=== PATIENT | male | born 1945 | race Caucasian/White ===

== ENCOUNTER 2018-01-25 12:15 | Inpatient (IN) | payer MEDICARE ==
[~2018-01-25] VITALS: Ht 175.3 cm; Wt 56.8 kg
[~2018-01-25 12:15] MED LIST: ACET500 PO; DOXY100 PO; DULO60 PO; ERGO50000 PO; FAMO20 PO; Felodipine ER5 MG PO; HYDMOR2 PO; LACT10SY PO; METH10 PO; METO5A PO; ONDA4ODT PO; PANT40 PO; ZENPEP DR 5,001 EACH PO
[2018-01-25 13:23] LABS: BASOPHILS ABSOLUTE AUTO 0.06 K/mm3 (0.00-0.23); BASOPHILS PERCENT AUTO 0 % (0-2); EOSINOPHILS ABSOLUTE AUTO 0.23 K/mm3 (0.00-0.68); EOSINOPHILS PERCENT AUTO 1 % (0-6); Hematocrit 44.3 % (37.0-53.0); Hemoglobin 14.4 g/dL (13.5-17.5); IMMATURE GRAN PERCENT AUTO 1 % (0-1); LYMPHOCYTES ABSOLUTE AUTO 1.98 K/mm3 (0.84-5.20); LYMPHOCYTES PERCENT AUTO 12 % (21-46); MONOCYTES ABSOLUTE AUTO 0.99 K/mm3 (0.16-1.47); MONOCYTES PERCENT AUTO 6 % (4-13); Mean Corpuscular HGB 30.1 pg (26.0-34.0); Mean Corpuscular HGB Conc 32.5 g/dL (31.5-36.5); Mean Corpuscular Volume 93 fL (80-100); Mean Platelet Volume 10.9 fL (9.1-12.4); NEUTROPHILS ABSOLUTE AUTO 13.21 K/mm3 (1.96-9.15); NEUTROPHILS PERCENT AUTO 80 % (41-73); Platelet Count 181 K/mm3 (150-400); RDW Coefficient Variation 13.8 % (11.7-14.2); RDW Standard Deviation 47.2 fL (35.1-46.3); Red Blood Cell Count 4.78 M/mm3 (4.30-5.90); White Blood Cell Count 16.57 K/mm3 (4.00-11.30)
[2018-01-25 13:30] LABS: Anion Gap 8 mmol/L (6-16); Blood Urea Nitrogen 15 mg/dL (8-24); Bun/Creatinine Ratio 14.3 (12.0-20.0); CO2, Blood 25 mmol/L (21-32); Calcium, Blood 8.3 mg/dL (8.5-10.1); Chloride, Blood 109 mmol/L (98-108); Creatinine, Blood 1.05 mg/dL (0.60-1.20); Glomerular Filtration Rate >60 (60-); Glucose, Blood 133 mg/dL (70-99); Potassium, Blood 4.6 mmol/L (3.5-5.5); Sodium, Blood 142 mmol/L (136-145)
[2018-01-25 13:36] LABS: International Normalized Ratio 1.01; Prothrombin Time Results 10.5 Sec (9.7-11.5)
[2018-01-26 04:36] LABS: Hematocrit 34.9 % (37.0-53.0); Hemoglobin 11.8 g/dL (13.5-17.5); Mean Corpuscular HGB 30.5 pg (26.0-34.0); Mean Corpuscular HGB Conc 33.8 g/dL (31.5-36.5); Mean Platelet Volume 10.2 fL (9.1-12.4); Platelet Count 149 K/mm3 (150-400); RDW Coefficient Variation 13.3 % (11.7-14.2); RDW Standard Deviation 43.8 fL (35.1-46.3); Red Blood Cell Count 3.87 M/mm3 (4.30-5.90); White Blood Cell Count 18.08 K/mm3 (4.00-11.30)
[2018-01-26 04:41] LABS: Mean Corpuscular Volume 90 fL (80-100)
[2018-01-26 04:56] LABS: Anion Gap 10 mmol/L (6-16); Blood Urea Nitrogen 14 mg/dL (8-24); Bun/Creatinine Ratio 16.5 (12.0-20.0); CO2, Blood 23 mmol/L (21-32); Calcium, Blood 8.4 mg/dL (8.5-10.1); Chloride, Blood 105 mmol/L (98-108); Creatinine, Blood 0.85 mg/dL (0.60-1.20); Glomerular Filtration Rate >60 (60-); Glucose, Blood 161 mg/dL (70-99); Potassium, Blood 4.1 mmol/L (3.5-5.5); Sodium, Blood 138 mmol/L (136-145)
[2018-01-26 14:36] LABS: Source, Urine Urostomy Bag
[2018-01-26 14:39] LABS: Bilirubin, Urine Neg (Neg); Blood, Urine Neg (Neg); Glucose Qualitative, Urine Neg (Neg); Ketones, Urine Neg (Neg); Leukocyte Esterase, Urine 3+ (Neg); Nitrite, Urine Neg (Neg); Protein, Urine Neg (Neg); Specific Gravity, Urine 1.005 (1.003-1.022); Urobilinogen, Urine NORM (Normal)
[2018-01-26 14:44] LABS: Appearance, Urine Clear (Clear); Color, Urine Pale Yellow (P-Yellow)
[2018-01-26 14:46] LABS: Bacteria Few /hpf; Red Blood Cells, Urine 0-2 /hpf (0-2); Squamous Epithelial Cells Not Seen /hpf (Few); White Blood Cells, Urine 25-50 /hpf (0-5)
[2018-01-27 13:04] LABS: BASOPHILS ABSOLUTE AUTO 0.02 K/mm3 (0.00-0.23); BASOPHILS PERCENT AUTO 0 % (0-2); EOSINOPHILS ABSOLUTE AUTO 0.02 K/mm3 (0.00-0.68); EOSINOPHILS PERCENT AUTO 0 % (0-6); Hematocrit 27.5 % (37.0-53.0); Hemoglobin 9.3 g/dL (13.5-17.5); IMMATURE GRAN ABSOLUTE AUTO 0.03 K/mm3 (0.00-0.10); IMMATURE GRAN PERCENT AUTO 0 % (0-1); LYMPHOCYTES ABSOLUTE AUTO 0.87 K/mm3 (0.84-5.20); LYMPHOCYTES PERCENT AUTO 8 % (21-46); MONOCYTES ABSOLUTE AUTO 0.69 K/mm3 (0.16-1.47); MONOCYTES PERCENT AUTO 6 % (4-13); Mean Corpuscular HGB 30.7 pg (26.0-34.0); Mean Corpuscular HGB Conc 33.8 g/dL (31.5-36.5); Mean Corpuscular Volume 91 fL (80-100); Mean Platelet Volume 10.5 fL (9.1-12.4); NEUTROPHILS PERCENT AUTO 85 % (41-73); Platelet Count 124 K/mm3 (150-400); RDW Coefficient Variation 13.6 % (11.7-14.2); RDW Standard Deviation 45.3 fL (35.1-46.3); Red Blood Cell Count 3.03 M/mm3 (4.30-5.90); White Blood Cell Count 11.13 K/mm3 (4.00-11.30)
== END 2018-01-29 11:10 | DRG 481 ==
LOC: ER 12:15 → SURS 14:45 → ENPENDDIS 01-29 09:57 → SURS 01-29 11:10
PROVIDERS: Emergency Medicine; Internal Medicine; Orthopaedic Surgery
PROC: 3E0234Z Introduction of Serum, Toxoid and Vaccine into Muscle, Percutaneous Approach (ICD-10-PCS; 2018-01-25)
PROC: 0QS734Z Reposition Left Upper Femur with Internal Fixation Device, Percutaneous Approach (ICD-10-PCS; principal; 2018-01-26 08:00)
DX: S72.142A Displaced intertrochanteric fracture of left femur, initial encounter for closed fracture (principal); N39.0 Urinary tract infection, site not specified; F11.20 Opioid dependence, uncomplicated; N99.521 Infection of incontinent external stoma of urinary tract; Z23 Encounter for immunization; Z93.2 Ileostomy status; W19.XXXA Unspecified fall, initial encounter; Y93.K1 Activity, walking an animal; G89.29 Other chronic pain; K62.89 Other specified diseases of anus and rectum
CPT/HCPCS: 36415; 71046; 73502; 80048; 81001; 85025; 85027; 85610; 86850; 86900; 86901; 87077; 87086; 87186; 93005; 93010; 96361; 96374; 96376; 97110; 97116; 97162; 97165; 97530; 97535; 99285; C1713; G8978; G8979; G8987; G8988; J0360; J1170; J2250; J2370; J3010; J7030

== ENCOUNTER 2019-06-18 00:49 | Emergency (ER) | payer MEDICARE ==
[~2019-06-18] VITALS: Ht 172.7 cm; Wt 62.1 kg
[2019-06-18 01:25] LABS: BASOPHILS ABSOLUTE AUTO 0.02 K/mm3 (0.00-0.23); BASOPHILS PERCENT AUTO 0 % (0-2); EOSINOPHILS ABSOLUTE AUTO 0.03 K/mm3 (0.00-0.68); EOSINOPHILS PERCENT AUTO 0 % (0-6); Hematocrit 44.8 % (37.0-53.0); Hemoglobin 15.2 g/dL (13.5-17.5); IMMATURE GRAN ABSOLUTE AUTO 0.03 K/mm3 (0.00-0.10); IMMATURE GRAN PERCENT AUTO 0 % (0-1); LYMPHOCYTES ABSOLUTE AUTO 0.57 K/mm3 (0.84-5.20); LYMPHOCYTES PERCENT AUTO 8 % (21-46); MONOCYTES PERCENT AUTO 4 % (4-13); Mean Corpuscular HGB 31.2 pg (26.0-34.0); Mean Corpuscular HGB Conc 33.9 g/dL (31.5-36.5); Mean Corpuscular Volume 92 fL (80-100); Mean Platelet Volume 10.1 fL (9.1-12.4); NEUTROPHILS ABSOLUTE AUTO 6.44 K/mm3 (1.96-9.15); NEUTROPHILS PERCENT AUTO 87 % (41-73); Platelet Count 111 K/mm3 (150-400); RDW Coefficient Variation 13.9 % (11.7-14.2); RDW Standard Deviation 47.5 fL (35.1-46.3); Red Blood Cell Count 4.87 M/mm3 (4.30-5.90); White Blood Cell Count 7.39 K/mm3 (4.00-11.30)
[2019-06-18 01:45] LABS: Alanine Aminotransfer (ALT/SGP 13 U/L (12-78); Albumin, Blood 3.8 g/dL (3.4-5.0); Albumin/Globulin Ratio 1.4 (0.8-1.8); Alk Phos 104 U/L (50-136); Anion Gap 5 mmol/L (6-16); Aspartate Aminotrans (AST/SGOT 11 U/L (12-37); Bilirubin, Total 0.7 mg/dL (0.1-1.0); Blood Urea Nitrogen 16 mg/dL (8-24); Bun/Creatinine Ratio 16.6 (12.0-20.0); CO2, Blood 27 mmol/L (21-32); Calcium, Blood 8.7 mg/dL (8.5-10.1); Chloride, Blood 110 mmol/L (98-108); Creatinine, Blood 0.96 mg/dL (0.60-1.20); Globulin, Blood 2.8 g/dL (2.2-4.0); Glomerular Filtration Rate >60 (60-); Glucose, Blood 123 mg/dL (70-99); Potassium, Blood 3.9 mmol/L (3.5-5.5); Sodium, Blood 142 mmol/L (136-145); Total Protein, Blood 6.6 g/dL (6.4-8.2)
[2019-06-18] MEDS ORDERED: BUPRENORPHINE1 EAC1 TD (01:45)
[2019-06-18] MEDS ORDERED: Calcitonin-Sal3.7 ML (01:47)
[2019-06-18] MEDS ORDERED: BELBUCA75 MCG BC (01:47)
[2019-06-18] MEDS ORDERED: CALCIUM 600 +1 EA11 (01:48)
[2019-06-18] MEDS ORDERED: NATURE'S TEARS15 M1 OP (01:48)
[2019-06-18] MEDS ORDERED: DILT120ERA PO (01:49)
[2019-06-18] MEDS ORDERED: DOCU100 PO (01:50)
== END 2019-06-18 05:00 | disposition home or self-care (01) ==
LOC: ER 00:49
PROVIDERS: Emergency Medicine
DX: K62.89 Other specified diseases of anus and rectum (principal); F17.210 Nicotine dependence, cigarettes, uncomplicated
CPT/HCPCS: 72193; 80053; 85025; 96374-59; 96375; 99284-25; A9270; J1170; J2405; Q9967

== ENCOUNTER 2019-08-15 06:04 | Emergency (ER) | payer MEDICARE ==
[~2019-08-15] VITALS: Ht 172.7 cm; Wt 54.4 kg
[~2019-08-15 06:04] MED LIST changes: +BELBUCA75 MCG BC; +BUPRENORPHINE1 EAC1 TD; +CALCIUM 600 +1 EA11; +Calcitonin-Sal3.7 ML; +DILT120ERA PO; +DOCU100 PO; +NATURE'S TEARS15 M1 OP
[2019-08-15] MEDS ORDERED: OXYC5 PO (06:34)
[2019-08-15] MEDS ORDERED: MIRALAX17 GM PO (06:35)
[2019-08-15] MEDS ORDERED: Acidophilus1 EAC1 PO (06:36)
[2019-08-15] MEDS ORDERED: Aspir 8181 MG PO (06:40)
[2019-08-15] MEDS ORDERED: THERA-D2000 UNIT PO (06:41)
[2019-08-15] MEDS ORDERED: TRAZ50 PO (06:45)
[2019-08-15 06:48] LABS: BASOPHILS ABSOLUTE AUTO 0.05 K/mm3 (0.00-0.23); BASOPHILS PERCENT AUTO 1 % (0-2); EOSINOPHILS ABSOLUTE AUTO 0.11 K/mm3 (0.00-0.68); EOSINOPHILS PERCENT AUTO 1 % (0-6); Hematocrit 48.2 % (37.0-53.0); Hemoglobin 16.6 g/dL (13.5-17.5); IMMATURE GRAN ABSOLUTE AUTO 0.03 K/mm3 (0.00-0.10); IMMATURE GRAN PERCENT AUTO 0 % (0-1); LYMPHOCYTES ABSOLUTE AUTO 0.84 K/mm3 (0.84-5.20); LYMPHOCYTES PERCENT AUTO 9 % (21-46); MONOCYTES ABSOLUTE AUTO 0.46 K/mm3 (0.16-1.47); MONOCYTES PERCENT AUTO 5 % (4-13); Mean Corpuscular HGB 31.8 pg (26.0-34.0); Mean Corpuscular HGB Conc 34.4 g/dL (31.5-36.5); Mean Corpuscular Volume 92 fL (80-100); Mean Platelet Volume 10.7 fL (9.1-12.4); NEUTROPHILS ABSOLUTE AUTO 7.76 K/mm3 (1.96-9.15); NEUTROPHILS PERCENT AUTO 84 % (41-73); Platelet Count 122 K/mm3 (150-400); RDW Coefficient Variation 13.2 % (11.7-14.2); RDW Standard Deviation 44.6 fL (35.1-46.3); Red Blood Cell Count 5.22 M/mm3 (4.30-5.90); White Blood Cell Count 9.25 K/mm3 (4.00-11.30)
[2019-08-15 06:57] LABS: Source, Urine Urostomy Bag
[2019-08-15 07:03] LABS: Appearance, Urine Turbid (Clear); Bilirubin, Urine Neg (Neg); Blood, Urine Neg (Neg); Color, Urine Amber (P-Yellow); Glucose Qualitative, Urine Neg (Neg); Ketones, Urine 4+ (Neg); Leukocyte Esterase, Urine 3+ (Neg); Nitrite, Urine Pos (Neg); Protein, Urine 3+ (Neg); Specific Gravity, Urine 1.015 (1.003-1.022); Urobilinogen, Urine NORM (Normal)
[2019-08-15 07:04] LABS: Alanine Aminotransfer (ALT/SGP 15 U/L (12-78); Albumin, Blood 3.7 g/dL (3.4-5.0); Albumin/Globulin Ratio 1.2 (0.8-1.8); Alk Phos 85 U/L (50-136); Anion Gap 8 mmol/L (6-16); Aspartate Aminotrans (AST/SGOT 11 U/L (12-37); Bilirubin, Total 0.7 mg/dL (0.1-1.0); Blood Urea Nitrogen 35 mg/dL (8-24); Bun/Creatinine Ratio 36.6 (12.0-20.0); CO2, Blood 28 mmol/L (21-32); Calcium, Blood 8.7 mg/dL (8.5-10.1); Chloride, Blood 106 mmol/L (98-108); Creatinine, Blood 0.96 mg/dL (0.60-1.20); Globulin, Blood 3.2 g/dL (2.2-4.0); Glomerular Filtration Rate >60 (60-); Glucose, Blood 153 mg/dL (70-99); Potassium, Blood 3.7 mmol/L (3.5-5.5); Sodium, Blood 142 mmol/L (136-145); Total Protein, Blood 6.9 g/dL (6.4-8.2)
[2019-08-15 07:24] LABS: Bacteria Mod /hpf; Red Blood Cells, Urine 0-2 /hpf (0-2); Squamous Epithelial Cells Not Seen /hpf (Few); Triple Phosphate Crystals Many /hpf
[2019-08-15] MEDS ORDERED: CEFP200 PO ×2 (09:22→09:50)
[2019-08-15] MEDS ORDERED: OXYC10ER PO (09:27)
== END 2019-08-15 10:20 | disposition home or self-care (01) ==
LOC: ER 06:04
PROVIDERS: Emergency Medicine
DX: N39.0 Urinary tract infection, site not specified (principal); Z85.46 Personal history of malignant neoplasm of prostate; F17.210 Nicotine dependence, cigarettes, uncomplicated; Z85.51 Personal history of malignant neoplasm of bladder; Z85.038 Personal history of other malignant neoplasm of large intestine; Z88.5 Allergy status to narcotic agent; Z88.8 Allergy status to other drugs, medicaments and biological substances; Z79.899 Other long term (current) drug therapy; Z79.891 Long term (current) use of opiate analgesic; Z79.82 Long term (current) use of aspirin
CPT/HCPCS: 36415; 74177; 80053; 81001; 83690; 85025; 87086; 96365-59; 96375; 99284-25; J0696; J2405; J3010; Q9967

== ENCOUNTER 2019-08-17 11:54 | Emergency (ER) | payer OTHER, MEDICARE ==
[~2019-08-17] VITALS: Ht 172.7 cm; Wt 54.4 kg
[~2019-08-17 11:54] MED LIST changes: +Acidophilus1 EAC1 PO; +Aspir 8181 MG PO; +CEFP200 PO; +MIRALAX17 GM PO; +OXYC10ER PO; +OXYC5 PO; +THERA-D2000 UNIT PO; +TRAZ50 PO
[2019-08-17 12:54] LABS: BASOPHILS ABSOLUTE AUTO 0.04 K/mm3 (0.00-0.23); BASOPHILS PERCENT AUTO 1 % (0-2); EOSINOPHILS ABSOLUTE AUTO 0.09 K/mm3 (0.00-0.68); EOSINOPHILS PERCENT AUTO 1 % (0-6); Hematocrit 47.7 % (37.0-53.0); IMMATURE GRAN ABSOLUTE AUTO 0.01 K/mm3 (0.00-0.10); IMMATURE GRAN PERCENT AUTO 0 % (0-1); LYMPHOCYTES PERCENT AUTO 11 % (21-46); MONOCYTES ABSOLUTE AUTO 0.39 K/mm3 (0.16-1.47); MONOCYTES PERCENT AUTO 5 % (4-13); Mean Corpuscular HGB 32.3 pg (26.0-34.0); Mean Corpuscular HGB Conc 33.5 g/dL (31.5-36.5); Mean Platelet Volume 11.2 fL (9.1-12.4); NEUTROPHILS ABSOLUTE AUTO 6.27 K/mm3 (1.96-9.15); NEUTROPHILS PERCENT AUTO 83 % (41-73); Platelet Count 131 K/mm3 (150-400); RDW Coefficient Variation 13.2 % (11.7-14.2); RDW Standard Deviation 47.1 fL (35.1-46.3); Red Blood Cell Count 4.96 M/mm3 (4.30-5.90)
[2019-08-17 12:55] LABS: Mean Corpuscular Volume 96 fL (80-100)
[2019-08-17 13:04] LABS: Albumin/Globulin Ratio 1.2 (0.8-1.8); Bilirubin, Total 0.5 mg/dL (0.1-1.0); Bun/Creatinine Ratio 30.5 (12.0-20.0); Calcium, Blood 9.4 mg/dL (8.5-10.1); Creatinine, Blood 1.28 mg/dL (0.60-1.20); Globulin, Blood 3.2 g/dL (2.2-4.0); Potassium, Blood 3.9 mmol/L (3.5-5.5); Total Protein, Blood 7.2 g/dL (6.4-8.2)
[2019-08-17 14:51] LABS: Source, Urine Clean Catch
[2019-08-17 14:58] LABS: Bilirubin, Urine Neg (Neg); Blood, Urine 2+ (Neg); Glucose Qualitative, Urine Neg (Neg); Ketones, Urine 1+ (Neg); Leukocyte Esterase, Urine 3+ (Neg); Nitrite, Urine Neg (Neg); Protein, Urine 2+ (Neg); Specific Gravity, Urine 1.025 (1.003-1.022); Urobilinogen, Urine NORM (Normal)
[2019-08-17 15:07] LABS: Appearance, Urine Clear (Clear); Color, Urine Yellow (P-Yellow)
[2019-08-17 15:08] LABS: Bacteria Mod /hpf; Red Blood Cells, Urine 0-2 /hpf (0-2); Squamous Epithelial Cells Few /hpf (Few)
[2019-08-17 15:09] LABS: Calcium Oxalate Crystals Mod /hpf; Mucus Light (0-Heavy)
== END 2019-08-17 16:12 | disposition home or self-care (01) ==
LOC: ER 11:54
PROVIDERS: Physician Assistant
DX: R10.9 Unspecified abdominal pain (principal); K92.0 Hematemesis; Z85.46 Personal history of malignant neoplasm of prostate; Z85.51 Personal history of malignant neoplasm of bladder; Z87.891 Personal history of nicotine dependence; Z88.5 Allergy status to narcotic agent; Z88.8 Allergy status to other drugs, medicaments and biological substances; Z79.899 Other long term (current) drug therapy; Z79.82 Long term (current) use of aspirin
CPT/HCPCS: 36415; 80053; 81001; 83690; 85025; 86850; 86900; 86901; 87077; 87086; 87186; 96374; 96375; 99284-25; J1170; J2405

== ENCOUNTER 2019-11-14 00:38 | Observation (INO) | payer OTHER, MEDICARE ==
[~2019-11-14] VITALS: Ht 175.3 cm; Wt 59.4 kg
[~2019-11-14 00:38] MED LIST changes: +ARTIFICIAL TEAR15 M1 BOTHEYES; -Acidophilus1 EAC1 PO; +CALCIUM 500 +1 EAC3 PO; -CALCIUM 600 +1 EA11; -NATURE'S TEARS15 M1 OP; +PROBIOTIC GOLD1 EACH PO; +ZENPEP DR 10,01 EACH PO; -ZENPEP DR 5,001 EACH PO
[2019-11-14] MEDS ORDERED: DILTIAZEM 24HR240 M3 PO (01:02)
[2019-11-14] MEDS ORDERED: DULO30 PO (01:04)
[2019-11-14] MEDS ORDERED: DILAUDID (01:05)
[2019-11-14] MEDS ORDERED: Nicoderm Cq1 EACH TOP (01:05)
[2019-11-14] MEDS ORDERED: PANCRELIPASE (01:06)
[2019-11-14] MEDS ORDERED: PANT20 PO (01:06)
[2019-11-14] MEDS ORDERED: PREG150 PO (01:07)
[2019-11-14] MEDS ORDERED: ASPIRIN (01:08)
[2019-11-14 03:11] LABS: Hematocrit 45.4 % (37.0-53.0); Hemoglobin 15.4 g/dL (13.5-17.5); Mean Corpuscular HGB 32.2 pg (26.0-34.0); Mean Corpuscular HGB Conc 33.9 g/dL (31.5-36.5); Mean Corpuscular Volume 95 fL (80-100); Mean Platelet Volume 11.9 fL (9.1-12.4); Platelet Count 102 K/mm3 (150-400); RDW Coefficient Variation 13.2 % (11.7-14.2); RDW Standard Deviation 46.1 fL (35.1-46.3); Red Blood Cell Count 4.79 M/mm3 (4.30-5.90); White Blood Cell Count 13.49 K/mm3 (4.00-11.30)
[2019-11-14 03:23] LABS: Alanine Aminotransfer (ALT/SGP 19 U/L (12-78); Albumin, Blood 3.6 g/dL (3.4-5.0); Albumin/Globulin Ratio 1.2 (0.8-1.8); Alk Phos 119 U/L (50-136); Anion Gap 7 mmol/L (6-16); Aspartate Aminotrans (AST/SGOT 17 U/L (12-37); Bilirubin, Total 0.4 mg/dL (0.1-1.0); Blood Urea Nitrogen 28 mg/dL (8-24); Bun/Creatinine Ratio 32.6 (12.0-20.0); CO2, Blood 24 mmol/L (21-32); Calcium, Blood 8.6 mg/dL (8.5-10.1); Chloride, Blood 113 mmol/L (98-108); Creatinine, Blood 0.86 mg/dL (0.60-1.20); Glomerular Filtration Rate >60 (60-); Glucose, Blood 137 mg/dL (70-99); Potassium, Blood 4.3 mmol/L (3.5-5.5); Sodium, Blood 144 mmol/L (136-145); Total Protein, Blood 6.6 g/dL (6.4-8.2)
--- NOTE | 2019-11-14 06:34 | NUR ---
SHIFT SUMMARY ED ADMIT @ 0415. PT SENT TO ED FROM ME. AOX4 BUT CONFUSED AT TIMES. PT DOES NOT KNOW ANYTHING ABOUT HIS MEDS. DIDN'T KNOW WHY HE WAS HERE AT FIRST. LS CLEAR, DENIES SOB. HYPO BOWEL SOUNDS, ABDOMEN TENDER, SLIGHTLY DISTENDED. MOST OF PT'S PAIN IS IN ABDOMEN. TYLENOL GIVEN @ 0615. PT HAS UROSTOMY AND ILEOSTOMY. ILEOSTOMY HAS YELLOW/GREEN SOFT OUTPUT. UROSTOMY HAS CLEAR YELLOW OUTPUT. UA ORDERED, UNSURE OF HOW TO COLLECT CLEAN URINE SAMPLE, TEACHER ADULT EDUCATION AWARE AND IS THINKING OF A PLAN FOR THIS, WILL GET BACK TO ME. NO OPEN SKIN AREAS, SKIN IS FRAGILE AND PT HAS SCATTERED REDNESS/BRUISING. TELE READS SR IN THE 80'S. NS RUNNING @ 75 X 1L IN L AC. PT REPORTS USING A CANE AT BASELINE. MED LIST UNABLE TO COMPLETE. PT FELL ASLEEP QUICKLY AFTER ARRIVING ON THE FLOOR.
[2019-11-14] MEDS ORDERED: HYDMOR4 PO (08:57)
[2019-11-14] MEDS ORDERED: LACT10SY PO (08:59)
[2019-11-14] MEDS ORDERED: NARCAN4 MG (09:05)
--- NOTE | 2019-11-14 10:30 | NUR ---
LEFT MESSAGE ON VOICE MAIL THAT MEDS RECONCILLED. DID NOT GIVE MEDS THAT WERE NOT ON HOME LIST. ADVISED TO PLEASE CHECK.
--- NOTE | 2019-11-14 11:19 | NUR ---
LEFT MESSAGE ON VOICE MAIL THAT IT LOOKS LIKE POSSSIBLE PROLAPSED STOMA. DOES SHE WANT SURGICAL CONSULT OR HER TO SEE FIRST? AWAITING ORDERS.
--- NOTE | 2019-11-14 11:33 | NUR ---
NOTIFIED OF CONCERNS AND STS HAS CHECKED PATIENT AND IS AWAITING INFO FROM [facility] STS NOT CONCERNED ABOUT UA HERE WAS DONE AT [facility] WILL CANCEL THAT LAB
--- NOTE | 2019-11-14 12:10 | NUR ---
NOTIFIED PATIENT CAME TO [facility]ESTERDAY FOR;N/V, CONFUSION, COLD SWEATS AND DEHYDRATION AND DID NOT HAVE ANY OF HIS MEDS FOR COUPLE OF DAYS AND NORMALLY ON NARCOTICS. PT SCHEDULED FOR SURGERY REPAIR ILEOSTOMY NEXT MONTH FOR PROLAPSE AND HERNIA REPAIR. INFO PER CAREGIVER JOSÉ MIGUEL KIRK [phone].POSSIBLY BACK TO [facility] ON SATURDAY. WAS THERE FROM 08/02-10/25.
--- NOTE | 2019-11-14 15:27 | NUR ---
PATIENT ALERT. AT TIMES LITTLE CONFUSED ;SUCH , WHY HERE. SEE PRIOR NOTE TO WHY HE WAS AT [facility] WHEN C/O PAIN IT HAS BEEN LOCALIZED AT ILEOSTOMY SITE W/AREA LOOKING PROLAPSED. POOR APPETITE. LITTLE OUTPUT THRU ILEOSTOMY W/MD AWARE. TO START DRINKING CONTRAST AT [address] ABD/PEL AT ABOUT 1930. HAVE NOT RECEIVED ANY MED RECORDS FROM LAST NIGHTS [facility] VISIT. HAVE FAXED REQUEST W/RELEASE X 2 AND HAVE TALKED TO [facility] ONCE. BED IN LOW POSITION. UNLABORED RESPIRATIONS. WCTM
--- NOTE | 2019-11-14 20:40 | NUR ---
OUT OF ROOM FOR IMAGING
--- NOTE | 2019-11-14 21:15 | NUR ---
BACK FROM IMAGING. RESTING IN BED, TOLERATED WELL
--- NOTE | 2019-11-14 22:36 | NUR ---
RESTING IN BED. IV ABX INFUSED. CALL LIGHT IN REACH.
--- NOTE | 2019-11-14 23:51 | NUR ---
ILEOSTOMY APPLIANCED CHANGED AFTER LEAKING. UROSTOMY CHANGED AT THE SAME TIME. PATIENT DOES SELF CARE WITH ASSISTANCE. TOLERATED WELL. CALL LIGHT IN REACH.
--- NOTE | 2019-11-15 03:18 | NUR ---
SHIFT SUMMARY PATIENT HAD NO ACUTE CHANGES. AXOX 3 W/CONFUSION AT TIMES. DRANK CONTRAST PRIOR TO SCHEDULE CT OF ABDOMEN. TOLERATED WELL. UROSTOMY AND ILEOSTOMY APPLIANCES CHANGED AFTER ILEOSTOMY LEAKED. PATIENT DOES SELF CARE OF APPLIANCES WITH ASSISTANCE. REPORTED ABDOMEN PAIN X TWO AND RECEIVED PO DILAUDID 2 MG PER EMAR. PIV INTACT. IV ABX INFUSED. CHILD SUPPORT OFFICER REPORTS NSR 72. DENIES SOB AND N/V. VSS/AFEBRILE. COOPERATIVE WITH CARE. CALL LIGHT IN REACH. BED IN LOWEST POSITION. BED ALARM. WILL CONTINUE TO MONITOR UNTIL DAY SHIFT NURSE ASSUMES CARE.
[2019-11-15 05:27] LABS: Albumin, Blood 3.1 g/dL (3.4-5.0); Anion Gap 10 mmol/L (6-16); Blood Urea Nitrogen 24 mg/dL (8-24); Bun/Creatinine Ratio 31.8 (12.0-20.0); CO2, Blood 21 mmol/L (21-32); Chloride, Blood 112 mmol/L (98-108); Creatinine, Blood 0.75 mg/dL (0.60-1.20); Glomerular Filtration Rate >60 (60-); Glucose, Blood 71 mg/dL (70-99); Phosphorus, Blood 1.6 mg/dL (2.5-4.9); Potassium, Blood 3.9 mmol/L (3.5-5.5); Sodium, Blood 143 mmol/L (136-145)
--- NOTE | 2019-11-15 05:57 | NUR ---
THREE LAB DRAW ATTEMPTS. LAB REPORTS LAST TWO SAMPLES COAGULATED WITH SLOW BLOOD DRAW RETURN.
[2019-11-15 06:02] LABS: BASOPHILS ABSOLUTE AUTO 0.06 K/mm3 (0.00-0.23); BASOPHILS PERCENT AUTO 1 % (0-2); EOSINOPHILS ABSOLUTE AUTO 0.34 K/mm3 (0.00-0.68); EOSINOPHILS PERCENT AUTO 5 % (0-6); Hematocrit 48.7 % (37.0-53.0); Hemoglobin 16.4 g/dL (13.5-17.5); IMMATURE GRAN ABSOLUTE AUTO 0.02 K/mm3 (0.00-0.10); IMMATURE GRAN PERCENT AUTO 0 % (0-1); LYMPHOCYTES ABSOLUTE AUTO 0.67 K/mm3 (0.84-5.20); LYMPHOCYTES PERCENT AUTO 9 % (21-46); MONOCYTES ABSOLUTE AUTO 0.45 K/mm3 (0.16-1.47); MONOCYTES PERCENT AUTO 6 % (4-13); Mean Corpuscular HGB Conc 33.7 g/dL (31.5-36.5); Mean Corpuscular Volume 95 fL (80-100); Mean Platelet Volume 11.5 fL (9.1-12.4); NEUTROPHILS ABSOLUTE AUTO 5.71 K/mm3 (1.96-9.15); NEUTROPHILS PERCENT AUTO 79 % (41-73); Platelet Count 69 K/mm3 (150-400); RDW Coefficient Variation 13.1 % (11.7-14.2); RDW Standard Deviation 45.8 fL (35.1-46.3); Red Blood Cell Count 5.13 M/mm3 (4.30-5.90); White Blood Cell Count 7.25 K/mm3 (4.00-11.30)
--- NOTE | 2019-11-15 14:24 | NUR ---
ALERT. ORIENTED. HAS CHANGED BOTH UROSTOMY AND ILEOSTOMY BAGS A FEW TIMES TODAY DUE TO LEAKAGE. DOES SELF CARE AND HAS SUPPLIES. AWAITING DR.MIDDLEKAUF GIBBONS. PER PATIENT, TO HAVE ILEOSTOMY REVERSED NEXT MONTH AT [facility]. DOES NOT HAVE DENTURES HERE AND THINKS THEY ARE AT [facility] 5TH FLOOR BEING LEFT THERE PRIOR TO TRANSFER. PAIN MEDS GIVEN FOR RECTUM PAIN. TM
--- NOTE | 2019-11-15 18:43 | NUR ---
NO CHANGES FROM PRIOR NOTE. AWARE TO COME IN TO EVAL HE DID [facility] HAS NOT HAD ANY THOUGHTS OF HARMING HIMSELF WHILE AT [facility]. TM
--- NOTE | 2019-11-16 05:02 | NUR ---
BLOCK SAWYER SUMMARY NO ACUTE CHANGES THIS SHIFT. PT AAOX4 AND PLEASANT. STANDBY ASSIST WITH AMBULATION. PT MANAGING ILEOSTOMY AND UROSTOMY. TREATED FOR CHRONIC PAIN X1 WITH 4 MG PO DILAUDID AND X1 WITH IV FENTANYL PER EMAR. VSS, WILL CONTINUE TO MONITOR.
[2019-11-16] MEDS ORDERED: Artificial Tea1 EACH BOTHEYES (11:10)
[2019-11-16] MEDS ORDERED: CEFU500T30 PO (11:18)
[2019-11-16] MEDS ORDERED: POLYETHYLENE G500 G1 PO (11:18)
--- NOTE | 2019-11-16 14:30 | NUR ---
Upon receiving an admit referral, I visit patient. He immediately tells me about his medical issues and that at times the limitations and pain have caused him to consider suicide and definately further exacerbated his struggles with depression. I conducted a life review, explore patient's belief system and explore sources of meaning and purpose. I listen empathically, reinforece helpful attitudes and practices, and provide inspirational materials, anxiety containment, pastoral student counselor, grief support and prayer. Patient responds well and displays evidence of restored german and empowerment to work through the limitations and pain. Patient voices appreciation for the visit.
--- NOTE | 2019-11-16 17:25 | NUR ---
SHIFT SUMMARY/DC PT HAD NO ACUTE CHANGES THIS SHIFT, PT DISCUSSED FRUSTRATION W/"LIVING IN PAIN" BUT STATED WE HAD TAKEN "GOOD CARE" OF HIM AND HELPED W/PAIN CONTROL. PT STATED THAT HE HAD SURG SCHED IN 1 MONTH AND HE WOULD NOT BE HAVING PAIN LIKE THIS ANYMORE AND THAT HE JUST HAD TO "GET BY" UNTIL THEN. PT ALSO EXPRESSED CONCERNS W/WEANING OFF THE DILAUDID AFTER SURG. PT HAD PSYCH CONSULT IN ROOM PRIOR TO DC & [facility]X FROM [facility] GIV[facility] TO DR MITCHELL WHO CLEARED PT FOR DC. REVIEWED DC INSTRUCTIONS W/PT & CG, BOTH VERBALIZED UNDERSTANDING. PT WAS TRANSPORTED VIA W/C TO DC IN PRIVATE VEHICLE @ [id number].
== END 2019-11-16 16:35 | disposition home or self-care (01) ==
LOC: ER 00:38 → MEDS 00:39 → ENPENDDIS 11-16 10:47 → MEDS 11-16 16:35
PROVIDERS: Internal Medicine; ADMIT Internal Medicine
DX: R10.9 Unspecified abdominal pain (principal); G89.4 Chronic pain syndrome; T83.511A Infection and inflammatory reaction due to indwelling urethral catheter, initial encounter; N39.0 Urinary tract infection, site not specified; B96.89 Other specified bacterial agents as the cause of diseases classified elsewhere; R06.81 Apnea, not elsewhere classified; J44.9 Chronic obstructive pulmonary disease, unspecified; M85.80 Other specified disorders of bone density and structure, unspecified site; F17.210 Nicotine dependence, cigarettes, uncomplicated; F32.9 Major depressive disorder, single episode, unspecified; K21.9 Gastro-esophageal reflux disease without esophagitis; E83.39 Other disorders of phosphorus metabolism; Z85.46 Personal history of malignant neoplasm of prostate; Z85.51 Personal history of malignant neoplasm of bladder; Z93.2 Ileostomy status; Z88.5 Allergy status to narcotic agent; Z88.8 Allergy status to other drugs, medicaments and biological substances; Z79.82 Long term (current) use of aspirin; Z79.899 Other long term (current) drug therapy; Z96.0 Presence of urogenital implants; Y84.6 Urinary catheterization as the cause of abnormal reaction of the patient, or of later complication, without mention of misadventure at the time of the procedure; Z23 Encounter for immunization
CPT/HCPCS: 36415; 74177; 80053; 80069; 83605; 83690; 85025; 85027; 90686; 93005; 93010; 96361; 96365; 96366; 96372; 96375; 96376; 99285-25; C9113; G0008; G0378; J0696; J1650; J1885; J3010; J7030; J7060; Q9967

== ENCOUNTER 2019-11-24 08:32 | Emergency (ER) | payer OTHER, MEDICARE ==
[~2019-11-24] VITALS: Ht 172.7 cm; Wt 59.0 kg
[~2019-11-24 08:32] MED LIST changes: +ASPIRIN; +Artificial Tea1 EACH BOTHEYES; +CEFU500T30 PO; +DILAUDID; +DILTIAZEM 24HR240 M3 PO; +DULO30 PO; +HYDMOR4 PO; +NARCAN4 MG; +Nicoderm Cq1 EACH TOP; +PANCRELIPASE; +PANT20 PO; +POLYETHYLENE G500 G1 PO; +PREG150 PO
[2019-11-24 09:57] LABS: BASOPHILS ABSOLUTE AUTO 0.04 K/mm3 (0.00-0.23); BASOPHILS PERCENT AUTO 1 % (0-2); EOSINOPHILS ABSOLUTE AUTO 0.04 K/mm3 (0.00-0.68); EOSINOPHILS PERCENT AUTO 1 % (0-6); Hematocrit 48.6 % (37.0-53.0); Hemoglobin 16.5 g/dL (13.5-17.5); IMMATURE GRAN ABSOLUTE AUTO 0.02 K/mm3 (0.00-0.10); IMMATURE GRAN PERCENT AUTO 0 % (0-1); LYMPHOCYTES ABSOLUTE AUTO 0.67 K/mm3 (0.84-5.20); LYMPHOCYTES PERCENT AUTO 8 % (21-46); MONOCYTES ABSOLUTE AUTO 0.38 K/mm3 (0.16-1.47); MONOCYTES PERCENT AUTO 5 % (4-13); Mean Corpuscular HGB 31.9 pg (26.0-34.0); Mean Corpuscular Volume 94 fL (80-100); NEUTROPHILS ABSOLUTE AUTO 7.13 K/mm3 (1.96-9.15); NEUTROPHILS PERCENT AUTO 86 % (41-73); Platelet Count 156 K/mm3 (150-400); RDW Standard Deviation 44.4 fL (35.1-46.3); Red Blood Cell Count 5.17 M/mm3 (4.30-5.90); White Blood Cell Count 8.28 K/mm3 (4.00-11.30)
[2019-11-24 10:18] LABS: Alanine Aminotransfer (ALT/SGP 24 U/L (12-78); Albumin, Blood 4.1 g/dL (3.4-5.0); Albumin/Globulin Ratio 1.1 (0.8-1.8); Alk Phos 121 U/L (50-136); Anion Gap 8 mmol/L (6-16); Aspartate Aminotrans (AST/SGOT 16 U/L (12-37); Bilirubin, Total 0.6 mg/dL (0.1-1.0); Blood Urea Nitrogen 14 mg/dL (8-24); Bun/Creatinine Ratio 16.7 (12.0-20.0); CO2, Blood 23 mmol/L (21-32); Calcium, Blood 9.2 mg/dL (8.5-10.1); Chloride, Blood 110 mmol/L (98-108); Creatinine, Blood 0.84 mg/dL (0.60-1.20); Globulin, Blood 3.6 g/dL (2.2-4.0); Glomerular Filtration Rate >60 (60-); Glucose, Blood 142 mg/dL (70-99); Sodium, Blood 141 mmol/L (136-145); Total Protein, Blood 7.7 g/dL (6.4-8.2)
[2019-11-24 11:26] LABS: Source, Urine Clean Catch
[2019-11-24 11:32] LABS: Appearance, Urine Clear (Clear); Bilirubin, Urine Neg (Neg); Blood, Urine Neg (Neg); Color, Urine Yellow (P-Yellow); Glucose Qualitative, Urine Neg (Neg); Ketones, Urine 1+ (Neg); Leukocyte Esterase, Urine Neg (Neg); Nitrite, Urine Neg (Neg); Protein, Urine Neg (Neg); Urobilinogen, Urine NORM (Normal)
== END 2019-11-24 12:50 | disposition home or self-care (01) ==
LOC: ER 08:32
PROVIDERS: Physician Assistant
DX: R10.9 Unspecified abdominal pain (principal); G89.29 Other chronic pain; F32.9 Major depressive disorder, single episode, unspecified; F44.9 Dissociative and conversion disorder, unspecified; F17.200 Nicotine dependence, unspecified, uncomplicated; Z88.5 Allergy status to narcotic agent; Z88.8 Allergy status to other drugs, medicaments and biological substances; Z79.899 Other long term (current) drug therapy; Z79.82 Long term (current) use of aspirin
CPT/HCPCS: 36415; 74176; 80053; 81003; 83690; 85025; 96361; 96374; 96375; 96376; 99284-25; J1170; J2405; J7120

== ENCOUNTER 2019-11-26 08:56 | Emergency (ER) | payer OTHER, MEDICARE ==
[~2019-11-26] VITALS: Ht 175.3 cm; Wt 63.5 kg
== END 2019-11-26 12:12 | disposition home or self-care (01) ==
LOC: ER 08:56
DX: R10.9 Unspecified abdominal pain (principal); G89.29 Other chronic pain; J44.9 Chronic obstructive pulmonary disease, unspecified; F32.9 Major depressive disorder, single episode, unspecified; F17.200 Nicotine dependence, unspecified, uncomplicated; Z85.46 Personal history of malignant neoplasm of prostate; Z85.51 Personal history of malignant neoplasm of bladder; Z88.5 Allergy status to narcotic agent; Z88.8 Allergy status to other drugs, medicaments and biological substances; Z79.82 Long term (current) use of aspirin; Z79.899 Other long term (current) drug therapy
CPT/HCPCS: 96372; 99283-25; J1885

== ENCOUNTER 2020-02-02 19:02 | Emergency (ER) | payer OTHER, MEDICARE ==
[~2020-02-02] VITALS: Ht 172.7 cm; Wt 72.6 kg
[2020-02-02 19:31] LABS: BASOPHILS ABSOLUTE AUTO 0.04 K/mm3 (0.00-0.23); BASOPHILS PERCENT AUTO 0 % (0-2); EOSINOPHILS ABSOLUTE AUTO 0.01 K/mm3 (0.00-0.68); EOSINOPHILS PERCENT AUTO 0 % (0-6); Hematocrit 45.5 % (37.0-53.0); Hemoglobin 15.8 g/dL (13.5-17.5); IMMATURE GRAN ABSOLUTE AUTO 0.03 K/mm3 (0.00-0.10); IMMATURE GRAN PERCENT AUTO 0 % (0-1); LYMPHOCYTES ABSOLUTE AUTO 0.93 K/mm3 (0.84-5.20); LYMPHOCYTES PERCENT AUTO 10 % (21-46); MONOCYTES PERCENT AUTO 7 % (4-13); Mean Corpuscular HGB Conc 34.7 g/dL (31.5-36.5); Mean Corpuscular Volume 92 fL (80-100); NEUTROPHILS ABSOLUTE AUTO 7.65 K/mm3 (1.96-9.15); NEUTROPHILS PERCENT AUTO 83 % (41-73); Platelet Count 120 K/mm3 (150-400); RDW Coefficient Variation 12.9 % (11.7-14.2); RDW Standard Deviation 43.5 fL (35.1-46.3); Red Blood Cell Count 4.94 M/mm3 (4.30-5.90); White Blood Cell Count 9.26 K/mm3 (4.00-11.30)
[2020-02-02 19:58] LABS: Influenza A Negative (NEGATIVE); Influenza B Negative (NEGATIVE)
[2020-02-02 20:01] LABS: Alanine Aminotransfer (ALT/SGP 16 U/L (12-78); Albumin, Blood 3.9 g/dL (3.4-5.0); Albumin/Globulin Ratio 1.2 (0.8-1.8); Alk Phos 110 U/L (50-136); Anion Gap 4 mmol/L (6-16); Aspartate Aminotrans (AST/SGOT 13 U/L (12-37); Bilirubin, Total 0.6 mg/dL (0.1-1.0); Blood Urea Nitrogen 26 mg/dL (8-24); Bun/Creatinine Ratio 31.9 (12.0-20.0); CO2, Blood 24 mmol/L (21-32); Calcium, Blood 9.5 mg/dL (8.5-10.1); Chloride, Blood 113 mmol/L (98-108); Creatinine, Blood 0.82 mg/dL (0.60-1.20); Globulin, Blood 3.3 g/dL (2.2-4.0); Glomerular Filtration Rate >60 (60-); Glucose, Blood 121 mg/dL (70-99); Potassium, Blood 3.8 mmol/L (3.5-5.5); Sodium, Blood 141 mmol/L (136-145); Total Protein, Blood 7.2 g/dL (6.4-8.2)
[2020-02-02] MEDS ORDERED: COMPAZINE10 MG PO (21:35)
== END 2020-02-02 23:39 | disposition home or self-care (01) ==
LOC: ER 19:02
PROVIDERS: Emergency Medicine
DX: R11.2 Nausea with vomiting, unspecified (principal); R19.7 Diarrhea, unspecified; R10.9 Unspecified abdominal pain; G89.29 Other chronic pain; J44.9 Chronic obstructive pulmonary disease, unspecified; F32.9 Major depressive disorder, single episode, unspecified; F17.210 Nicotine dependence, cigarettes, uncomplicated
CPT/HCPCS: 36415; 74176; 80053; 83690; 85025; 87804; 93005; 93010; 96361; 96374; 96375; 99284-25; A9270; J0780; J1200; J7030

== ENCOUNTER 2020-03-25 10:07 | Emergency (ER) | payer OTHER, MEDICARE ==
[~2020-03-25] VITALS: Ht 172.7 cm; Wt 59.0 kg
[~2020-03-25 10:07] MED LIST changes: +COMPAZINE10 MG PO
== END 2020-03-25 11:48 | disposition home or self-care (01) ==
LOC: ER 10:07
DX: K62.89 Other specified diseases of anus and rectum (principal); R10.9 Unspecified abdominal pain; G89.29 Other chronic pain; F32.9 Major depressive disorder, single episode, unspecified; J44.9 Chronic obstructive pulmonary disease, unspecified; F17.200 Nicotine dependence, unspecified, uncomplicated; Z88.5 Allergy status to narcotic agent; Z88.8 Allergy status to other drugs, medicaments and biological substances; Z79.899 Other long term (current) drug therapy; Z79.82 Long term (current) use of aspirin
CPT/HCPCS: 99283